=== PATIENT | male | born 1950 | race Caucasian/White ===

== ENCOUNTER 2016-12-31 08:57 | Day surgery (SDC) | payer BC, OTHER ==
[2016-12-29 14:30] VITALS: BMI 27.3
[2016-12-31] MEDS ORDERED: PANTOPRAZOLE 20 MG TABLET (FP) PO PRN (09:26)
[2016-12-31] MEDS ORDERED: FINASTERIDE 5 MG TABLET (FP) PO SCH (10:00)
[2016-12-31] MEDS ORDERED: TAMSULOSIN HCL 0.4 MG CAP.ER.24H (FP) PO SCH (10:00)
[2016-12-31] MEDS ORDERED: LISINOPRIL 10 MG TABLET (FP) PO SCH (10:00)
--- NOTE | 2016-12-31 11:44 | OP ---
Operative Note - Note: Operative Date: 12/31/16 Pre-Operative Diagnosis: hematuria Operation: cysto b/l ureteroscopy Post-Operative Diagnosis: Same as Pre-op Surgeon: Eleazar Salcido Anesthesia: General Operative Report Dictated: Yes
[2016-12-31] MEDS ORDERED: CEPHALEXIN MONOHYDRATE 500 MG CAPSULE (UD) PO SCH (12:00)
[2016-12-31] MEDS ORDERED: LIDOCAINE HCL 2% 100 MG/5 ML DISP.SYRIN ONE (12:13)
[2016-12-31] MEDS ORDERED: PROPOFOL 20 ML ONE ×4 (12:13→13:35)
[2016-12-31] MEDS ORDERED: ePHEDrine SULFATE 50 MG/1 ML AMPULE ONE ×2 (12:13→14:05)
[2016-12-31] MEDS ORDERED: SUCCINYLCHOLINE CHLORIDE 200 MG/10 ML VIAL ONE (13:35)
[2016-12-31] MEDS ORDERED: MIDAZOLAM HCL 2 MG/2 ML SINGLE DOSE VIAL ONE (13:36)
[2016-12-31] MEDS ORDERED: ceFAZolin SODIUM 1 GM VIAL IVPB ONE (13:56)
[2016-12-31] MEDS ORDERED: IOHEXOL 300 MG/ML INFUS..BTL IJ ONE (14:16)
[2016-12-31] MEDS ORDERED: KETOROLAC TROMETHAMINE 30 MG/1 ML VIAL IVPUSH ONE (14:56)
[2016-12-31] MEDS ORDERED: ONDANSETRON 4 MG/2 ML VIAL IVPUSH PRN (14:56)
[2016-12-31] MEDS ORDERED: oxyCODONE HCL 5 MG TABLET PO PRN (14:56)
[2016-12-31] MEDS ORDERED: LACTATED RINGERS SOLUTION 1,000 ML IV SCH (15:00)
[2016-12-31 16:49] VITALS: TEMP 97.4
[2016-12-31 17:45] VITALS: BP 148/80; PULSE 56
[2016-12-31] MEDS ORDERED: ATORVASTATIN CA 20 MG TABLET (FP) PO SCH (22:00)
--- NOTE | 2017-01-01 07:06 | HP ---
DATE OF ADMISSION: DATE OF DICTATION: 12/31/2016 HISTORY OF PRESENT ILLNESS: Patient is a 66-year-old male with a history of persistent microscopic hematuria. He has also had abnormal cytologies. Patient complains of bilateral flank pains. This has been intermittent and going on for the past 6 months. Patient also has severe prostatism with frequency, urgency, nocturia, and feelings of incomplete bladder emptying. Patient does have history of gastroesophageal reflux disease. He underwent cardiac surgery in 1999 and 2000. He has undergone a left shoulder arthroscopy in the past. He did smoke cigarettes between the ages of 17 and 49. 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 He denies any tobacco presently. He does occasionally drink alcohol. The patient is well developed, well nourished, in no apparent distress. Lives with his family. Presently, he is on Lipitor, Prinivil, Nexium, and Flomax. PHYSICAL EXAMINATION:Abdomen: Soft. There was no CVA tenderness. Genitourinary: Genitalia were atraumatic. Testes were normal in size and consistency. Rectal: Prostate is 3+, smooth, and benign. IMAGING: A CAT scan of his abdomen revealed no stones and no hydronephrosis. LABORATORY DATA: His PSA was 2.9. BUN was 19 and creatinine was 0.9. IMPRESSION: At present, this is a 66-year-old male with persistent microscopic hematuria and bilateral flank pain. PLAN: Will admit to hospital for cystourethroscopy, bilateral ureteroscopies, bilateral renal pelvic washings, and bilateral JJ stenting. Once the results are back, patient will need a transurethral vaporization of the prostate. Jac [id number]
--- NOTE | 2017-01-01 09:20 | OP ---
DATE OF OPERATION: 12/31/2016 PREOPERATIVE DIAGNOSES: Intermittent gross hematuria and persistent microscopic hematuria. Bilateral flank pain. Abnormal cytology. OPERATIVE PROCEDURES: Cystourethroscopy. Collection of urine for culture and sensitivity, cytology and acid-fast. Bilateral retrograde pyelogram. Bilateral ureteroscopy. Bilateral renal pelvic washings. Bilateral JJ stents. ANESTHESIA: General. POSTOPERATIVE DIAGNOSES: Intermittent gross hematuria and persistent microscopic hematuria. Bilateral flank pain. Abnormal cytology. DESCRIPTION OF PROCEDURE: Under above-stated anesthesia, the patient was prepped and draped in the usual sterile manner. He was placed in the dorsal lithotomy position. External genitalia revealed a circumcised penis; meatus was adequate; testes were normal in size and consistency. No hernias or hydroceles were seen. A continuous flow, 30-degree scope was introduced under direct vision. Urethra was within normal limits. Prostatic urethra revealed trilobar hypertrophy of the prostate gland. There was lateral lobe kissing. The bladder was entered and 300 mL of residual urine was drained. This was sent for UA, urine C and S, acid-fast bacilli and cytology. Inspection of the bladder revealed a grade 2 to 3 trabeculation throughout. No lesions were noted. No calculi were seen. The ureteral orifices were visualized and efflux of clear urine was noted. A Flexi-Tip catheter was placed in the right ureteral orifice and 7 mL of contrast were injected. This revealed a hydronephrotic right kidney with a possibility of a filling defect in the right renal pelvis. A left retrograde pyelogram also revealed mild hydroureteronephrosis. Therefore, a guide wire was passed up the right renal unit. The cystoscope was removed. Ureteroscopy was performed. No lesions were seen. Renal pelvis appeared clear of lesions or stones. Therefore, 5 mL of normal saline was injected in the renal pelvis and then aspirated for cytology. The same thing was done to the contralateral side. Two 24-cm, 6-Yakut JJ stents were placed in the right and left renal units. No active bleeding was noted. X-rays confirmed good position of the stents. The bladder was emptied. The scope was removed. The patient tolerated the procedure well. He returned to the recovery room in good condition. Jac [id number]
--- NOTE | 2017-01-05 09:35 | PATH ---
Cytology Non-Gynecological Report Patient Name: SANGEETA CABRAL [facility]. Rec. #: [id number] /Age/Gender: 1950 (Age: 66) / M Account: [id number] Location: [facility] Taken: 12/31/2016 Received: 01/03/2017 Reported: 01/05/2017 Physicians: Eleazar Salcido M.D. Specimen(s) Received URINE FOR CYTOLOGY Clinical History Flank pain Final Diagnosis URINE FOR CYTOLOGY: SATISFACTORY FOR EVALUATION. UROTHELIAL CELLS, SINGLE AND IN CLUSTERS PRESENT (SEE COMMENT). NUMEROUS RED BLOOD CELLS. Comment: Clusters of urothelial cells may be seen as a result of inflammation, instrumentation, stones and low-grade urothelial carcinoma. Also refer to C17-333 and C17-334. Electronically Signed Alexi May M.D. Gross Description Received is 50 cc of clear yellow color fluid. Two cytofunnel slides are made.
--- NOTE | 2017-01-05 09:36 | PATH ---
Cytology Non-Gynecological Report Patient Name: SANGEETA CABRAL [facility]. Rec. #: [id number] /Age/Gender: 1950 (Age: 66) / M Account: [id number] Location: [facility] Taken: 12/31/2016 Received: 01/03/2017 Reported: 01/05/2017 Physicians: Eleazar Salcido M.D. Specimen(s) Received RIGHT RENAL PELVIS WASHINGS Clinical History Flank pain Final Diagnosis RENAL PELVIS WASHINGS, LEFT: SATISFACTORY FOR EVALUATION. UROTHELIAL CELLS, SINGLE AND IN RARE CLUSTERS PRESENT (SEE COMMENT). INFLAMMATORY CELLS NUMEROUS RED BLOOD CELLS. Comment: Clusters of urothelial cells may be seen as a result of inflammation, instrumentation, stones and low-grade urothelial carcinoma. Also refer to [id number] and C17-333. Electronically Signed Alexi May M.D. Gross Description Received is 10 cc of clear-pink fluid fresh. Two cytofunnel slides and one cell block are made.
--- NOTE | 2017-01-05 09:38 | PATH ---
Cytology Non-Gynecological Report Patient Name: SANGEETA CABRAL [facility]. Rec. #: [id number] /Age/Gender: 1950 (Age: 66) / M Account: [id number] Location: [facility] Taken: 12/31/2016 Received: 01/03/2017 Reported: 01/05/2017 Physicians: Eleazar Salcido M.D. Specimen(s) Received LEFT RENAL PELVIS WASHINGS Clinical History Flank pain Final Diagnosis RENAL PELVIS WASHINGS, LEFT: SATISFACTORY FOR EVALUATION. CLUSTERS OF MILDLY ATYPICAL UROTHELIAL CELLS PRESENT. ACUTE INFLAMMATION. RED BLOOD CELLS. Comment: Clusters of urothelial cells may be seen as a result of inflammation, instrumentation, stones and low-grade urothelial carcinoma. The cytological atypia is only mild and focal. Also refer to C17-332 and C17-334. Electronically Signed Alexi May M.D. Gross Description Received is 5 cc of pink fluid. Two cytofunnel slides and one cell block are made.
== END 2016-12-31 17:51 | disposition home or self-care (01) ==
LOC: JASU-SURG 08:57
PROVIDERS: ATTEND Urology
PROC: 0WHR8YZ Insertion of Other Device into Genitourinary Tract, Via Natural or Artificial Opening Endoscopic (ICD-10-PCS; 2016-12-31)
PROC: 0T788DZ Dilation of Bilateral Ureters with Intraluminal Device, Via Natural or Artificial Opening Endoscopic (ICD-10-PCS; principal; 2016-12-31 10:30)
PROC: BT14ZZZ Fluoroscopy of Kidneys, Ureters and Bladder (ICD-10-PCS; 2016-12-31 10:30)
DX: N02.9 Recurrent and persistent hematuria with unspecified morphologic changes (principal)
CPT/HCPCS: 76000-TC; 87086; 87116; 88108; 88305-TC; 94760